=== PATIENT | male | born 1985 | race Caucasian/White ===

== ENCOUNTER → 2018-09-08 06:19 | Outpatient (CLI) | payer OTHER, SELFPAY ==
--- NOTE | 2018-09-08 | DI.MRI.S_ITS ---
PROCEDURE: MR SHOULDER LT WO CON INDICATIONS: PAIN IN BILATERAL SHOULDER TECHNIQUE: Noncontrast oblique coronal T2 fast spin echo with fat saturation, oblique sagittal T1 spin echo and T2 fast spin echo with fat saturation, axial T1 spin echo and T2 fast spin echo with fat saturation through the shoulder. COMPARISON: None. FINDINGS: Image quality: Excellent. Rotator cuff: Supraspinatus tendinopathy, with partial thickness bursal sided tear involving the critical zone and footprint. No definite full-thickness defect is seen. There is also subscapularis thickening and intrasubstance signal change keeping with tendinopathy/interstitial tearing, although no definite extension of abnormal signal to the articular or bursal surface. The infraspinatus and teres minor tendons appear intact. There is mild ill-defined edema within the teres minor muscle raising the possibility of denervation or low-grade strain. No discrete space-occupying lesion or abnormal signal change seen within the quadrilateral interval No atrophy of the rotator cuff musculature. Mild fatty infiltration of the supraspinatus and infraspinatus muscles. Bones and bursae: No bone marrow contusions or fractures. Moderate acromioclavicular joint degeneration. The acromion demonstrates conventional anatomy, without an os acromiale. Mild to moderate subacromial/subdeltoid bursitis. Capsule and soft tissues: In the absence of intra-articular contrast, the labrum and glenohumeral ligaments appear intact. Incidental sub-labral foramen. Ill-defined appearance with possible hypertrophy involving the anteroinferior labrum suggestive of chronic tear/degeneration. There may also be low signal thickening of the anterior band of the inferior glenohumeral ligament The long head of the biceps tendon demonstrates normal location and morphology. The rotator interval appears normal, without fibrosis. The coracohumeral ligament is normal in thickness. IMPRESSION: Supraspinatus tendinopathy with partial-thickness bursal sided tear of the critical zone and footprint. Subscapularis tendinopathy with interstitial tearing. Mild fatty infiltration of the supraspinatus and infraspinatus muscles. Mild-moderate subacromial/subdeltoid bursitis. Low-grade sprain of the anterior band of the intra-glenohumeral ligament. The anteroinferior labrum is also not well seen although predominantly low signal appearance suggestive of chronic degeneration or tear, possibly with scarring. Please correlate clinically. Of note there is minimal degenerative change in the adjacent glenoid rim. Mild edema within the teres minor muscle suggestive of low-grade strain versus denervation. Please correlate clinically. Dictated by: Chris Arroyo M.D. on 09/08/2018 at 9:45 Approved by: Chris Arroyo M.D. on 09/08/2018 at 10:12
--- NOTE | 2018-09-08 | DI.MRI.S_ITS ---
PROCEDURE: MR SHOULDER RT WO CON INDICATIONS: PAIN IN BILATERAL SHOULDER TECHNIQUE: Noncontrast oblique coronal T2 fast spin echo with fat saturation, oblique sagittal T1 spin echo and T2 fast spin echo with fat saturation, axial T1 spin echo and T2 fast spin echo with fat saturation through the shoulder. COMPARISON: [facility], MR, SHOULDER RT W/O CONTRAST, 12/05/2014, 12:32. [facility], CR, SHOULDER MIN 2VW (RT), 11/08/2014, 15:24. [facility], MR, MR SHOULDER LT WO CON, 09/08/2018, 6:35. FINDINGS: Image quality: Excellent. Rotator cuff: Subscapularis tendon demonstrates thickening and intrasubstance signal change given with tendinopathy and low-grade interstitial tearing. Supraspinatus bursal sided partial-thickness tear is seen in the setting of background tendinopathy. There is also infraspinatus tendinopathy with low-grade bursal and articular surface fraying. Teres minor appears intact. No atrophy of the rotator cuff musculature. There is minimal fatty infiltration of the infraspinatus muscle Bones and bursae: No bone marrow contusions or fractures. Moderate acromioclavicular joint degeneration. The acromion demonstrates conventional anatomy, without an os acromiale. Mild subacromial/subdeltoid bursal fluid Capsule and soft tissues: There is minimal intermediate intrasubstance signal change involving the superior labrum, possibly degenerative in nature without fluid signal intensity discrete tear. Circumferential frayed appearance of the remaining labrum The long head of the biceps tendon demonstrates normal location and morphology. The rotator interval appears normal, without fibrosis. The coracohumeral ligament is normal in thickness. IMPRESSION: Subscapularis tendinopathy and low-grade interstitial tearing. Supraspinatus tendinopathy, with partial thickness bursal sided tear. Infraspinatus tendinopathy with low-grade bursal and articular surface fraying. Mild fatty infiltration of the infraspinatus muscle. Mild subacromial/subdeltoid bursitis. Circumferential fraying of the labrum, possibly chronic/degenerative. Dictated by: Chris Arroyo M.D. on 09/08/2018 at 10:15 Approved by: Chris Arroyo M.D. on 09/08/2018 at 10:26
== END ==
PROVIDERS: Visit Provider Family Medicine
DX: M25.512 Pain in left shoulder (principal); M25.511 Pain in right shoulder; M75.112 Incomplete rotator cuff tear or rupture of left shoulder, not specified as traumatic; M75.52 Bursitis of left shoulder; M75.111 Incomplete rotator cuff tear or rupture of right shoulder, not specified as traumatic; M75.51 Bursitis of right shoulder
CPT/HCPCS: 73221